=== PATIENT | female | born 1950 | race Hispanic/Latino ===

== ENCOUNTER 2019-01-12 05:40 | Day surgery (SDC) | payer MEDICARE ==
[~2019-01-12] VITALS: Ht 154.9 cm; Wt 65.8 kg
[~2019-01-12 05:40] MED LIST: MULT-1258 PO; PRED5TAB PO
[2019-01-12] MEDS ORDERED: SODIUM CHLORIDE 0.9% 1000ML 1,000 ML IV ONE (05:48)
[2019-01-12 07:08] VITALS: BP 145/81
[2019-01-12] MEDS ORDERED: DEXAMETHASONE SOD PHOSPHATE 10MG/ML 1ML VIAL ONE (08:36)
[2019-01-12] MEDS ORDERED: PROPOFOL 10 MG/ML 20ML VIAL IV ONE ×2 (08:50)
[2019-01-12 09:03] VITALS: BP 157/85
[2019-01-12] MEDS ORDERED: PHENYLEPHRINE HCL 10 MG/ML 1ML VIAL IV ONE (09:04)
[2019-01-12 09:08] VITALS: BP 155/84
[2019-01-12 09:13] VITALS: BP 116/66
[2019-01-12 09:18] VITALS: BP 110/68
[2019-01-12 09:25] VITALS: BP 120/77
== END 2019-01-12 09:35 | disposition home or self-care (01) ==
LOC: ENDO 05:40 → DAH 05:40 → ENDO 09:35
PROVIDERS: ATTEND Internal Medicine Gastroenterology
DX: R19.5 Other fecal abnormalities (principal); K29.50 Unspecified chronic gastritis without bleeding; Z98.0 Intestinal bypass and anastomosis status; Z90.710 Acquired absence of both cervix and uterus; Z98.890 Other specified postprocedural states; Z88.8 Allergy status to other drugs, medicaments and biological substances; Z79.899 Other long term (current) drug therapy; Z80.0 Family history of malignant neoplasm of digestive organs
CPT/HCPCS: 43239; 45378; A4606; J1100; J2370; J2704 ×2; J7030

== ENCOUNTER 2020-10-20 11:44 | Emergency (ER) | payer MEDICARE, OTHER ==
[2020-10-20] MEDS ORDERED: 0.9%NACL 1000ML 1,000 ML IV ONE (12:28)
[2020-10-20] MEDS ORDERED: ONDANSETRON 4MG INJ ONE (12:29)
[2020-10-20] MEDS ORDERED: DEXAMETHASONE SOD PHOSPHATE 10MG/ML 1ML VIAL ONE (12:29)
[2020-10-20] MEDS ORDERED: FAMOTIDINE 20MG VIAL IV ONE (12:30)
[2020-10-20 12:33] LABS: BASOPHILS % (AUTO) 0.4 % (0.0-5.0); EOSINOPHILS % (AUTO) 5.1 % (0.0-8.0); LYMPHOCYTES % (AUTO) 16.7 % (21.0-51.0); MEAN CORPUSCULAR HEMOGLOBIN 30.1 pg (27.0-33.0); MEAN CORPUSCULAR HGB CONC 33.8 g/dL (32.0-36.0); MEAN CORPUSCULAR VOLUME 88.8 fL (79-99); MONOCYTES % (AUTO) 15.8 % (3.0-13.0); NEUTROPHILS % (AUTO) 61.7 % (40.0-77.0); PLATELET COUNT (AUTO) 218 K/uL (130-400); RED BLOOD CELL COUNT(AUTO) 5.29 MIL/uL (4.00-5.50); RED CELL DISTRIBUTION WIDTH 12.7 % (11.0-15.5); WHITE BLOOD COUNT (AUTO) 7.5 K/uL (4.8-10.8)
[2020-10-20 12:51] LABS: CREATININE 1.2 mg/dL (0.5-1.5); POTASSIUM 3.2 mmol/L (3.5-5.1)
[2020-10-20 12:56] LABS: ALBUMIN 3.6 g/dL (3.5-5.0); BILIRUBIN,TOTAL 0.6 mg/dL (0.2-1.0); TOTAL PROTEIN, SERUM 6.8 g/dL (6.0-8.3)
[2020-10-20] MEDS ORDERED: POTASSIUM BICARB/CIT AC 25 MEQ TABLET.EFF ONE (13:57)
== END 2020-10-20 16:16 | disposition home or self-care (01) ==
LOC: EDH 11:44
DX: R11.2 Nausea with vomiting, unspecified (principal); E27.40 Unspecified adrenocortical insufficiency; R51.9 Headache, unspecified; Z88.6 Allergy status to analgesic agent
CPT/HCPCS: 36415; 80053; 82948; 83690; 84484; 85025; 93005; 96361; 96374; 96375; 99284; J1100; J2405; J3490; J7030; J7120

== ENCOUNTER → 2024-02-08 | Outpatient (CLI) | payer OTHER | END | disposition home or self-care (01) | LOC: OIH 09:29 | PROVIDERS: ATTEND Family Medicine | DX: Z13.6 Encounter for screening for cardiovascular disorders (principal) | CPT/HCPCS: 75571 ==